=== PATIENT | male | born 1960 | race Caucasian/White ===

== ENCOUNTER 2019-01-03 12:16 | Emergency (ER) | payer BC ==
[2019-01-03 12:41] VITALS: BP 141/73
--- NOTE | 2019-01-03 13:28 | UC ---
Skin Complaint HPI - HPI Summary HPI Summary: boil right side of buttocks x 5 days + pain and swelling of the area, pain is 6 out of 10 , worse with siting and pressure better by standing no fever, no chills - History of Current Complaint Chief Complaint: UCSkin Time Seen by Provider: 01/03/19 12:34 Stated Complaint: SKIN COMPLAINT PERSONAL Hx Obtained From: Patient Onset/Duration: Gradual Onset, Lasting Days - 5, Still Present Timing: Constant Onset Severity: Moderate Current Severity: Moderate Pain Intensity: 0 Pain Scale Used: 0-10 Numeric Location: Discrete - right buttocks Character: Swelling, Pain, Redness, Raised, Painful Aggravating Factor(s): Touch Alleviating Factor(s): Nothing Associated Signs & Symptoms: Positive: Tenderness. Negative: Nausea, Vomiting, Weakness, Fever, Chills - Allergy/Home Medications Allergies/Adverse Reactions: Allergies Allergy/AdvReac Type Severity Reaction Status Date / Time No Known Allergies Allergy Verified 02/07/16 19:02 PMH/Surg Hx/FS Hx/Imm Hx Previously Healthy: Yes - Surgical History Surgical History: Yes Surgery Procedure, Year, and Place: t6/t7 herniated disc - Family History Known Family History: Positive: Cardiac Disease, Hypertension, Diabetes, Other - CANCER - Social History Alcohol Use: Occasionally Substance Use Type: None Smoking Status (MU): Heavy Every Day Tobacco Smoker Type: Cigarettes Amount Used/How Often: 1-1/2 ppd Length of Time of Smoking/Using Tobacco: 40 yrs Have You Smoked in the Last Year: Yes - Immunization History Most Recent Influenza Vaccination: has not had Review of Systems All Other Systems Reviewed And Are Negative: Yes Constitutional: Positive: Negative Eyes: Positive: Negative ENT: Positive: Negative Respiratory: Positive: Negative Is Patient Immunocompromised?: No Physical Exam Triage Information Reviewed: Yes Appearance: Well-Appearing, No Pain Distress, Well-Nourished Vital Signs: Initial Vital Signs Temp 98.7 F 01/03/19 12:33 Pulse 84 01/03/19 12:33 Resp 18 01/03/19 12:33 BP 141/73 01/03/19 12:33 Pulse Ox 97 01/03/19 12:33 Vital Signs Reviewed: Yes Eye Exam: Normal Eyes: Positive: Conjunctiva Clear ENT: Positive: Normal ENT inspection, Hearing grossly normal, Pharynx normal Neck exam: Normal Neck: Positive: Supple, Nontender, No Lymphadenopathy Respiratory: Positive: Chest non-tender, Lungs clear, Normal breath sounds Cardiovascular: Positive: RRR, No Murmur, Pulses Normal Abdominal Exam: Normal Skin: Positive: Other - abscess right bottocks 5 cm in diameter, hard, swollen, teder to touch , no fluctuent Course/Dx - Diagnoses Provider Diagnosis: Abscess of buttock, right Discharge - Sign-Out/Discharge Documenting (check all that apply): Patient Departure All imaging exams completed and their final reports reviewed: No Studies - Discharge Plan Condition: Stable Disposition: HOME Prescriptions: Cephalexin CAP* [Keflex CAP*] 500 mg PO QID #40 cap Patient Education Materials: Abscess (ED) Referrals: No Primary Care Phys,NOPCP [Primary Care Provider] - 5 Days - Billing Disposition and Condition Condition: STABLE Disposition: Home
== END 2019-01-03 13:05 | disposition home or self-care (01) ==
LOC: UCCORT 12:16
DX: L02.31 Cutaneous abscess of buttock (principal); F17.210 Nicotine dependence, cigarettes, uncomplicated
CPT/HCPCS: 99212; G0463

== ENCOUNTER 2019-01-22 11:28 | Emergency (ER) | payer BC ==
[2019-01-22] MEDS ORDERED: Ipratropium 0.5MG/2.5ML NEB* 0.5 MG/2.5 ML NEB.SOLN INH ONE ×2 (11:32→12:58)
[2019-01-22] MEDS ORDERED: Albuterol 2.5 MG/3 ML NEB.SOL* (0.083%) INH ONE ×3 (11:32→12:58)
[2019-01-22] MEDS ORDERED: predniSONE TAB* 20 MG PO ONE (12:00)
--- NOTE | 2019-01-22 12:25 | UC ---
Respiratory Complaint HPI - HPI Summary HPI Summary: 58 yo male with cough and wheeze x 3 days. Progressively more short of breath. Developed left lateral chest pain today. Has COPD (has no inhalers presently) has felt feverish and had chills - History of Current Complaint Chief Complaint: UCRespiratory Stated Complaint: SHORTNESS OF BREATH Time Seen by Provider: 01/22/19 11:32 Hx Obtained From: Patient Onset/Duration: Gradual Onset, Lasting Days Timing: Constant Severity Initially: Mild Severity Currently: Severe Pain Intensity: 8 Pain Scale Used: 0-10 Numeric Character: Cough: Nonproductive Aggravating Factors: Nothing Associated Signs And Symptoms: Positive: Dyspnea, Fever - abby, Chills, Pleuritic Chest Pain - LEFT LAT, Wheezing. Negative: Hemoptysis, Dizziness, Calf Pain, Calf Swelling, Edema, URI, Nasal Congestion, Hoarseness, Sinus Discomfort Related History: Similar Episode/Dx as: - pneumonia - Allergies/Home Medications Allergies/Adverse Reactions: Allergies Allergy/AdvReac Type Severity Reaction Status Date / Time No Known Allergies Allergy Verified 01/22/19 11:34 Home Medications: Home Medications NK [No Home Medications Reported] 01/22/19 [History Confirmed 01/22/19] PMH/Surg Hx/FS Hx/Imm Hx Previously Healthy: Yes Respiratory History: COPD, Pneumonia - Surgical History Surgical History: Yes Surgery Procedure, Year, and Place: t6/t7 herniated disc - Family History Known Family History: Positive: Cardiac Disease, Hypertension, Diabetes, Other - CANCER - Social History Alcohol Use: Occasionally Substance Use Type: None Smoking Status (MU): Heavy Every Day Tobacco Smoker Type: Cigarettes Amount Used/How Often: 1-1/2 ppd Length of Time of Smoking/Using Tobacco: 40 yrs Have You Smoked in the Last Year: Yes Cessation Counseling: Patient Advised to Stop - Immunization History Most Recent Influenza Vaccination: has not had Review of Systems All Other Systems Reviewed And Are Negative: Yes Constitutional: Positive: Fever, Chills, Fatigue Skin: Positive: Negative Eyes: Positive: Negative ENT: Positive: Negative Respiratory: Positive: Shortness Of Breath, Cough Cardiovascular: Positive: Chest Pain Gastrointestinal: Positive: Negative Genitourinary: Positive: Negative Motor: Positive: Negative Neurovascular: Positive: Negative Musculoskeletal: Positive: Negative Neurological: Positive: Negative Psychological: Positive: Negative Physical Exam Triage Information Reviewed: Yes Appearance: Ill-Appearing, Other: - on arrival markedly dysneic, increased WOB, speaking in fragmented sentences, clutching left lat chest Vital Signs: Initial Vital Signs Temp 97.9 F 01/22/19 11:30 Pulse 82 01/22/19 11:30 Resp 28 01/22/19 11:30 BP 154/97 01/22/19 11:30 Pulse Ox 95 01/22/19 11:30 Eyes: Positive: Conjunctiva Clear ENT: Positive: Hearing grossly normal. Negative: Nasal congestion, Nasal drainage, Trismus, Hoarse voice Neck: Positive: Supple, Nontender, No Lymphadenopathy Respiratory: Positive: Chest non-tender, Respiratory distress, Decreased breath sounds - left base, Wheezing, Other: - increased WOB /speaking in fragmented sentences Cardiovascular: Positive: RRR, No Murmur Abdomen Description: Positive: Nontender, No Organomegaly. Negative: CVA Tenderness (R), CVA Tenderness (L) Bowel Sounds: Positive: Present Musculoskeletal: Positive: ROM Intact, No Edema, Other: - no calf tenderness, (- ) Hailey's Neurological: Positive: Alert Psychological Exam: Normal Skin Exam: Normal Diagnostics - Radiology No standard instances Radiology Interpretation Completed By: Radiologist Summary of Radiographic Findings: #. Probable LEFT basilar pneumonia superimposed on chronic obstructive pulmonary disease Re-Evaluation - Re-Evaluation First Eval Re-Evaluation Time: 11:57 Change: Improved - still very tight and wheezy...will check cxr Second Eval Re-Evaluation Time: 12:47 Change: Improved Comment: feels improved but still with increased WOB, wheezing and elevated RR Third Eval Re-Evaluation Time: 13:48 Change: Improved - no wheezing, still tachypneic, rales both bases L>>R, pox 89- 90 Respiratory Course/Dx - Course Course Of Treatment: d/w Cindy De La Cruz [employer] to [facility] via POV I informed her that patient still had increased WOB, and has a POx of 90% he declines EMS transfer - Differential Dx/Diagnosis Provider Diagnosis: Pneumonia, Bronchospasm Discharge - Sign-Out/Discharge Documenting (check all that apply): Patient Departure All imaging exams completed and their final reports reviewed: Yes - Discharge Plan Condition: Improved Disposition: HOME-RECOMMEND TO ED Referrals: No Primary Care Phys,NOPCP [Primary Care Provider] - Additional Instructions: I suggest you go straight to the ER for further evaluation despite feeling better than when you arrived here your oxygen is still lower than normal you are still working hard to breath here you had three neb treatments prednisone 60 mg augmentin 875 mg - Billing Disposition and Condition Condition: IMPROVED Disposition: Home-Recommend to ED
[2019-01-22] MEDS ORDERED: Amoxicillin/Clavulanate TAB* 875 MG PO ONE (13:48)
[2019-01-22 14:07] VITALS: BP 150/92
== END 2019-01-22 14:02 | disposition home health service (06) ==
LOC: UCCORT 11:28
DX: J18.9 Pneumonia, unspecified organism (principal); J98.01 Acute bronchospasm; J44.9 Chronic obstructive pulmonary disease, unspecified; F17.210 Nicotine dependence, cigarettes, uncomplicated
CPT/HCPCS: 71046; 93005; 99214; A9270-GY; G0463; J7512